=== PATIENT | male | born 1975 | race Two or more races ===

== ENCOUNTER 2023-04-14 11:35 | Emergency (ER) | payer OTHER ==
[~2023-04-14] VITALS: Ht 160 cm; Wt 62.6 kg
[2023-04-14 13:11] LABS: URINE APPEARANCE Clear; URINE BILIRRUBIN Negative (NEGATIVE); URINE BLOOD Negative; URINE COLOR Yellow; URINE GLUCOSE Negative (NEGATIVE); URINE LEUKOCYTE Negative; URINE NITRATE Negative; URINE PROTEIN Trace (NEGATIVE)
[2023-04-14 13:12] LABS: URINE BACTERIA 6.2 uL (0.0-1933)
[2023-04-14 13:15] LABS: HEMATOCRIT 48.4 % (39.0-48.0); HEMOGLOBIN 16.7 g/dL (13-16.00); MEAN CORPUSCULAR HEMOGLOBIN 32.5 pg (27.00-32.0); MEAN CORPUSCULAR HGB CONC 34.5 g/dl (32.0-36.0); PLATELET COUNT 214 K/uL (150-450); RED BLOOD COUNT 5.15 M/uL (4.00-6.00); RED CELL DISTRIBUTION WIDTH 13.8 % (11.5-14.5)
[2023-04-14 13:45] LABS: URINE EPITHELIAL CELLS 0.9 uL (0.0-38.8)
[2023-04-14] MEDS ORDERED: PEPCID AC20 MG PO (14:03)
[2023-04-14] MEDS ORDERED: TUSNEL LIQUID178 ML PO (14:03)
[2023-04-14] MEDS ORDERED: PAXLOVID 300-11 EACH PO (14:03)
== END 2023-04-14 14:36 | disposition home or self-care (01) ==
LOC: ER
PROVIDERS: General Practice
DX: U07.1 COVID-19 (principal); B34.8 Other viral infections of unspecified site